=== PATIENT | female | born 1970 | race Caucasian/White ===

== ENCOUNTER 2022-10-07 07:16 | Day surgery (SDC) | payer OTHER ==
[2022-10-05 09:59] VITALS: BMI 24.1
[2022-10-07] MEDS ORDERED: MIDAZOLAM HCL 2 MG/2 ML SINGLE DOSE VIAL ONE (08:00)
[2022-10-07] MEDS ORDERED: PROPOFOL 20 ML ONE ×2 (08:00→08:02)
[2022-10-07] MEDS ORDERED: LIDOCAINE HCL 2% (20ML MULTI-DOSE VIAL) ONE (08:28)
[2022-10-07] MEDS ORDERED: BUPIVACAINE HCL/PF 2.5 MG/ML - 30 ML VIAL IJ ONE (08:29)
[2022-10-07] MEDS ORDERED: ONDANSETRON 4 MG/2 ML VIAL ONE (08:45)
[2022-10-07] MEDS ORDERED: DEXAMETHASONE SOD PHOSPHATE 4 MG/1 ML VIAL ONE (08:45)
[2022-10-07] MEDS ORDERED: KETOROLAC TROMETHAMINE 30 MG/1 ML VIAL ONE (08:45)
[2022-10-07 09:27] VITALS: RESP 20
[2022-10-07 10:06] VITALS: BP 106/62; PULSE 72; TEMP 97
== END 2022-10-07 10:10 | disposition home or self-care (01) ==
LOC: FASU 07:16
PROVIDERS: ATTEND Orthopaedic Surgery Hand Surgery
PROC: 0JBJ0ZZ Excision of Right Hand Subcutaneous Tissue and Fascia, Open Approach (ICD-10-PCS; principal; 2022-10-07 08:57)
DX: D21.11 Benign neoplasm of connective and other soft tissue of right upper limb, including shoulder (principal); R22.31 Localized swelling, mass and lump, right upper limb
CPT/HCPCS: 81025